=== PATIENT | male | born 1980 | race Caucasian/White ===

== ENCOUNTER → 2019-07-05 10:09 | Outpatient (CLI) | payer BC, SELFPAY ==
--- NOTE | ~2019-07-05 | XR_ITS ---
EXAMINATION: XR lumbar spine 2-3V DATE: 07/05/2019 10:22 INDICATION: Low back pain TECHNIQUE: Anteroposterior and lateral views of the lumbar spine, and cone-down lateral view of the l umbosacral junction were obtained. COMPARISON: None. FINDINGS: There is no fracture, dislocation, or subluxation. The vertebral body heights, alignment, a nd intervertebral disc spaces are normal. The paravertebral soft tissues are unremarkable. IMPRESSION: 1. Unremarkable lumbar spine radiographs. Reviewed, dictated and finalized at location A. ATOR OPERATOR
== END ==
PROVIDERS: PCP Physician Assistant Medical; Visit Provider Physician Assistant Medical
DX: M54.42 Lumbago with sciatica, left side (principal)
CPT/HCPCS: 72100

== ENCOUNTER 2022-04-16 18:48 | Emergency (ER) | payer OTHER, SELFPAY ==
[2022-04-16 19:13] VITALS: BP 124/79; PULSE 72; RESP 18; TEMP 36.8; O2SAT 100
--- NOTE | 2022-04-16 19:30 | ED.ABDPAIN ---
HPI - Abdominal Pain General Stated Complaint: abdominal pain Time Seen by Provider: 04/16/22 19:30 Source: patient, RN notes reviewed and old records reviewed Mode of arrival: ambulatory Limitations: no limitations History of Present Illness HPI narrative: 41-year-old male presents to the [facility] with complaints of abdominal pain. Patient reports epigastric, right upper quadrant, left upper quadrant pain started on Monday had had nausea, bloating and vomiting. Did not eat or drink anything until last night when he ate some pizza and shortly thereafter the pain returned. patient denies any past medical or surgical history Related Data Home Medications Medication Instructions Recorded Confirmed No Home Medications 04/16/22 04/16/22 Allergies Allergy/AdvReac Type Severity Reaction Status Date / Time No Known Allergies Allergy Verified 12/15/20 10:50 Review of Systems Review of Systems: All systems reviewed & are unremarkable except as noted in HPI and below Constitutional: Constitutional: Reports no additional constitutional complaints Eyes: Eyes: Reports no additional eye complaints ENT: Reports system reviewed and no additional complaints, except as documented Cardiovascular: Cardiovascular: Reports no additional cardiovascular complaints, Denies chest pain and Denies dyspnea Respiratory: Respiratory: Reports no additional respiratory complaints, Denies chest congestion, Denies cough and Denies dyspnea Gastrointestinal: Gastrointestinal: Reports as per HPI, Reports abdominal pain, Reports bloating, Reports nausea and Denies vomiting Musculoskeletal: Musculoskeletal: Reports no additional musculoskeletal complaints Integumentary/Breasts: Skin/Breast: Reports system reviewed and no additional complaints, except as docu Neurologic: Reports system reviewed and no additional complaints, except as documented Psychiatric: Psychiatric: Reports no additional psychiatric complaints Allergic/Immunologic: Allergic/Immunologic: Reports no additional allergic/immunologic complaints ON LICENSE OF [facility] Past Medical History Medical History (Updated 04/16/22 @ 19:43 by Aniya Milligan APRN) Patient denies medical problems Surgical History Surgical History (Updated 04/16/22 @ 19:39 by Aniya Milligan APRN) No pertinent past surgical history Family History Family History Mother Hypertension Grandparent Family history of malignant neoplasm of breast Social History Social History Smoking status: Never smoker Comments At the time of my signature, I reviewed and agree with the nursing past medical, surgical, social, and family history. There is no relevant family history pertinent to the patient complaint. Exam Const: General: cooperative, healthy appearing, comfortable, no acute distress, well developed, alert, average body habitus and well nourished Nutritional Appearance: average body habitus and well nourished Orientation/consciousness: patient oriented x3 Limitations: no limitations HENMT: Head: normal to inspection Ears: hearing grossly normal bilaterally and external ears normal Face/Nose/Sinus: Normal external nose present, Normal nares present, Normal nasal mucous membranes and turbinates present and normal facial exam Face and sinus: normal facial exam Mouth: Yes Normal oral and palatal mucosa present, Yes lip normal and Yes moist mucous membranes Throat: posterior oropharynx normal and uvula midline Eyes: General: appearance normal, both eyes and all related structures Alignment and Position: alignment normal Periorbital: periorbital findings normal Conjunctivae: conjunctivae normal Pupils: Equal, round and reactive pupils present EOM: EOMs intact bilaterally Neck: Neck: normal visual inspection, full ROM, no lymphadenopathy and no meningeal signs Chest: Chest palpation & inspectio
== END 2022-04-16 19:44 | disposition short-term general hospital (02) ==
PROVIDERS: Emergency Provider Nurse Practitioner
DX: R10.31 Right lower quadrant pain (principal); R10.13 Epigastric pain
CPT/HCPCS: 99212; G0463

== ENCOUNTER 2022-04-16 19:50 | Inpatient (IN) | payer OTHER, SELFPAY ==
--- NOTE | ~2022-04-16 | XR_ITS ---
EXAMINATION: XR sm bowel follow through DATE: 04/18/2022 12:11 INDICATION: Small bowel obstruction. TECHNIQUE: Oral contrast was administered, and a time course of radiographs of the abdomen was obtain ed. Fluoroscopy of the small bowel was performed. Fluoroscopy exposure time was 0.2 minutes. The tota l number of images was 12. COMPARISON: CT abdomen and pelvis 04/17/2022 FINDINGS: There are multiple dilated loops of small bowel. No transition point is identified. Transit time from the stomach to proximal colon was approximately 2 hours. IMPRESSION: 1. Dilated small bowel with normal transit time of contrast to the colon, consistent with adynamic il eus. Reviewed, dictated and finalized at location A. [employer] IMPRESSION: 1. Dilated small bowel with normal transit time of contrast to the colon, consi stent with adynamic ileus.
--- NOTE | ~2022-04-16 | XR_ITS ---
EXAMINATION: XR abdomen obstructive series DATE: 04/18/2022 08:35 INDICATION: Small bowel obstruction. TECHNIQUE: Upright and supine views of the abdomen on 3 radiographs were obtained. COMPARISON: CT abdomen and pelvis 04/17/2022 FINDINGS: There are dilated loops of small bowel. The colon is decompressed. There is a small volume of stool in the colon. No free intraperitoneal gas. There are phleboliths in the pelvis. IMPRESSION: 1. Persistently dilated small bowel, consistent with small bowel obstruction. Reviewed, dictated and finalized at location A. ALS RN
--- NOTE | ~2022-04-16 | CT_ITS ---
EXAMINATION: CT abdomen pelvis w con DATE: 04/17/2022 01:59 INDICATION: Right upper quadrant and epigastric abdominal pain. Nausea and vomiting. TECHNIQUE: Computed tomography (CT) of the abdomen and pelvis was performed with 100 mL Omnipaque 350 intravenous contrast. Automated exposure control and iterative reconstruction technique were employe d. The dose-length product was 228.58 mGy-cm. COMPARISON: None. FINDINGS: The visualized portions of the lung bases are clear without pneumonia or pleural effusion. The heart size is normal. No pericardial effusion. The liver, gallbladder, spleen, pancreas, adrenal glands, and kidneys are normal. The appendix is normal. There are multiple dilated loops of small bow el. There is a transition point in right abdomen. The colon is normal in caliber. There are no pathol ogically enlarged lymph nodes. There is trace pelvic ascites. There are chronic bilateral L5 pars def ects. No spondylolisthesis. IMPRESSION: 1. Small bowel obstruction with transition point in right abdomen. Reviewed, dictated and finalized at location A. TER DRIVER
--- NOTE | ~2022-04-16 | XR_ITS ---
EXAMINATION: XR abdomen obstructive series DATE: 04/19/2022 05:52 INDICATION: Adynamic ileus. TECHNIQUE: Upright and supine views of the abdomen on 3 radiographs were obtained. COMPARISON: Abdomen radiographs 04/18/2022, small bowel series 04/18/2022 FINDINGS: There is dilated small bowel with interval improvement. There is contrast in the colon, whi ch is decompressed. No free peritoneal gas. IMPRESSION: 1. Dilated small bowel with interval improvement, consistent with adynamic ileus. Reviewed, dictated and finalized at location A. TRUCK [employer]K RECEIVER IMPRESSION: 1. Dilated small bowel with interval improvement, consistent with adynamic ileu s.
--- NOTE | ~2022-04-16 | XR_ITS ---
EXAMINATION: XR abdomen obstructive series DATE: 04/17/2022 07:50 INDICATION: Abdominal pain. Small bowel obstruction. TECHNIQUE: Upright and supine views of the abdomen were obtained. COMPARISON: CT abdomen and pelvis 04/17/2022 FINDINGS: There are multiple dilated loops of small bowel. The colon is decompressed. No free intrape ritoneal gas. IMPRESSION: 1. Persistent small bowel obstruction. Reviewed, dictated and finalized at location A. STOCK MACHINE LOADER
[2022-04-16 19:54] VITALS: BP 127/68; PULSE 71; RESP 16; TEMP 36.7; O2SAT 99
[2022-04-16 20:05] LABS: Basophils Absolute Auto 0.1 K/mm3 (0.0-0.1); Basophils Percent Auto 0.8 % (0.2-1.2); Eosinophils Absolute Auto 0.1 K/mm3 (0-0.3); Hematocrit 44.4 % (42.0-52.0); Hemoglobin 15.4 g/dL (14.0-18.0); Immature Granulocyte Absolute 0.01 K/mm3 (0.00-0.031); Immature Granulocyte Percent A 0.2 % (0-0.5); Lymphocytes Absolute Auto 1.77 K/mm3 (0.9-3.2); Lymphocytes Percent Auto 26.7 % (18.3-44.2); Mean Corpuscular HGB Conc 34.7 g/dl (32-36); Mean Corpuscular Hemoglobin 31.2 pg (26-34); Mean Corpuscular Volume 90.1 fl (80-100); Mean Platelet Volume 8.8 fl (7.4-10.4); Monocytes Absolute Auto 0.9 K/mm3 (0.1-0.6); Monocytes Percent Auto 13.7 % (2.6-8.5); Neutrophils Absolute Auto 3.8 K/mm3 (1.3-6.7); Neutrophils Percent Auto 56.6 % (45.5-73.1); Platelet Count Result 288 k/mm3 (150-375); Red Blood Count 4.93 M/mm3 (4.6-6.20); Red Cell Distribution Width 11.8 % (11.5-14.5); White Blood Count 6.6 K/mm3 (4.5-10.0)
[2022-04-16 20:16] LABS: Alanine Aminotransferase 25 U/L (6-50); Albumin Level 4.8 g/dL (3.5-5.1); Alkaline Phosphatase 72 U/L (38-126); Anion Gap 8 mmol/L (8-16); Aspartate Amino Transferase 29 U/L (17-59); Bilirubin,Total 0.9 mg/dL (0.2-1.3); Blood Urea Nitrogen 15 mg/dL (9-20); Calcium 9.2 mg/dL (8.4-10.2); Carbon Dioxide 32 mmol/L (22-30); Chloride 98 mmol/L (98-107); Estimated CRCL calculation 93 ml/min; Estimated Glomerular Filt Rate > 60; Glucose 115 mg/dL (65-110); Lipase 58 U/L (23-300); Potassium 3.9 mmol/L (3.4-5.0); Sodium 138 mmol/L (137-145)
[2022-04-16 21:16] LABS: Appearance Urine Clear (Clear); Bilirubin Urine 1+ (Negative); Blood Urine Negative (Negative); Color Urine Yellow (Yellow); Glucose Urine UA Negative (Negative); Ketones Urine 1+ mg/dL (Negative); Leukocyte Esterase Ur Negative LEU/UL (Negative); Nitrate Urine Negative (Negative); Protein Urine 1+ mg/dL (Negative); Specific Grav Ur >= 1.030 (1.001-1.035)
[2022-04-16 21:18] LABS: Add Urine Microscopic? YES; Mucus Urine Moderate /lpf; Squamous Epithelial Cell Urine Rare /hpf (Few); WBC Urine 0-3 /hpf
[2022-04-16 21:52] VITALS: BP 121/70; PULSE 64; RESP 18; O2SAT 100
[2022-04-17 00:15] VITALS: BP 125/79; PULSE 63; RESP 20; O2SAT 100
--- NOTE | 2022-04-17 00:50 | ED.ABDPAIN ---
HPI - Abdominal Pain General Chief Complaint: Abdominal Pain Stated Complaint: abd pain Time Seen by Provider: 04/17/22 00:44 History of Present Illness HPI narrative: Patient is a 41-year-old male sent here from urgent care for evaluation of epigastric/right upper quadrant abdominal discomfort for the past 4 days. Patient states that his pain is severe in nature, coming in waves. He states that his pain worsened after eating a slice of pizza 2 nights ago. He does report 1 episode of vomiting nonbloody/nonbilious emesis, and several episodes of nonbloody diarrhea. Last episode of diarrhea was yesterday. He denies any fevers, chills, abdominal surgeries. At time my evaluation patient is pain-free and declines pain meds. Related Data Home Medications Medication Instructions Recorded Confirmed No Home Medications 04/16/22 04/17/22 Allergies Allergy/AdvReac Type Severity Reaction Status Date / Time No Known Allergies Allergy Verified 04/17/22 05:16 Review of Systems Review of Systems: Gen: Denies fevers or chills Eyes: Denies eye pain or visual change ENT: Denies congestion Respiratory: Denies shortness of breath or cough CV: Denies chest pain or palpitations GI: Reports abdominal pain, nausea, diarrhea denies burning, urgency, frequency or hematuria Musculoskeletal: Denies back pain or muscle pain Neuro: Denies numbness, tingling, weakness or focal weakness Skin: Denies rash Except as documented, all other systems reviewed and negative PMFSH Past Medical History Medical History Patient denies medical problems Surgical History Surgical History No pertinent past surgical history Family History Family History Mother Hypertension Grandparent Family history of malignant neoplasm of breast Social History Social History Smoking packs per day: 0.5 Smoking cigarettes per day: 10.0 Smoking status: Former smoker Tobacco type: cigarettes Smoking end date: 04/23/14 Alcohol intake: current Drinks per week: 3 Substance use: never Lack of Transportation: No Lack of Food: Never True Current Housing: I Have Housing Concerned About Future Housing: No Difficulty Paying Gas/Electric Bills: No Difficulty Paying for Meds: No Currently Unemployed: No Education: High School Diploma/GED Difficulty w/ Childcare or Family Care: No Spiritual care concerns: No Exam Narrative: APPEARANCE: Well appearing, no pain in distress, well-nourished. Head: Normocephalic and atraumatic. EYES: PERRLA/EOMI, conjunctivae clear NOSE: No nasal drainage EARS: External ear normal in appearance THROAT: Oropharynx is clear. Mucous membranes are moist. NECK: Supple. No adenopathy, no masses. RESPIRATORY: Airway patent, respirations nonlabored. Clear to auscultation bilaterally, no rales, rhonchi, wheezing. CARDIOVASCULAR: Regular rate and rhythm without murmurs, rubs, or gallops. ABDOMINAL: Tender to palpation in the epigastric/right upper quadrant region with deep palpation. Abdomen is firm. No rebound tenderness or guarding. MUSCULOSKELETAL: Extremities are warm and well-perfused. Moves all extremities well. No edema. NEURO: Normal speech. No focal neurologic deficits. SKIN: Skin is warm and dry. No rashes. PSYCHIATRIC: Normal affect/mood.. Course Vital Signs Vital signs: Vital Signs Temperature 98.0 F 04/16/22 19:54 Pulse Rate 71 04/16/22 19:54 Respiratory Rate 16 04/16/22 19:54 Blood Pressure 127/68 04/16/22 19:54 Pulse Oximetry 99 04/16/22 19:54 Oxygen Delivery Room Air 04/16/22 19:54 Temperature 97.3 F L 04/17/22 14:00 Pulse Rate 73 04/17/22 14:00 Respiratory Rate 16 04/17/22 14:00 Blood Pressure 118/67 04/17/22 14:00 Pulse Oximet
[2022-04-17] MEDS: SODIUM CHLORIDE 0.9% IV 1,000 ML 999 ML IV CONT (02:17)
[2022-04-17 03:00] LABS: Lactic Acid Reflex 0.7 mmol/L (0.7-2.0)
[2022-04-17] MEDS: MORPHINE SULFATE (*CRX) 4 MG/ML INJ IV PUSH (03:20)
[2022-04-17] MEDS: SODIUM CHLORIDE 0.9% IV 1,000 ML 150 ML IV CONT (03:22)
[2022-04-17] MEDS: ONDANSETRON INJ 4 MG/2 ML VIAL IV PUSH ×2 (03:26→13:38)
[2022-04-17 03:35] VITALS: BP 125/63; PULSE 64; RESP 20; O2SAT 99
[2022-04-17 04:05] LABS: Influenza A QL RT-PCR Negative (Negative); Influenza B QL RT-PCR Negative (Negative); SARS-CoV-2 RNA PCR Negative
--- NOTE | 2022-04-17 05:13 | PC.NURSE ---
Patient admitted on 3 Med-Surg 05:05 on 04/17/2022
[2022-04-17 05:18] VITALS: BMI 22.3
[2022-04-17 06:00] VITALS: BP 119/48; PULSE 62; RESP 16; TEMP 36.3; O2SAT 100
[2022-04-17 07:54] LABS: Basophils Absolute Auto 0.1 K/mm3 (0.0-0.1); Eosinophils Absolute Auto 0.1 K/mm3 (0-0.3); Hematocrit 39.7 % (42.0-52.0); Hemoglobin 13.5 g/dL (14.0-18.0); Immature Granulocyte Absolute 0.02 K/mm3 (0.00-0.031); Immature Granulocyte Percent A 0.3 % (0-0.5); Lymphocytes Absolute Auto 1.87 K/mm3 (0.9-3.2); Lymphocytes Percent Auto 31.2 % (18.3-44.2); Mean Corpuscular Hemoglobin 31.3 pg (26-34); Mean Corpuscular Volume 91.9 fl (80-100); Monocytes Absolute Auto 0.9 K/mm3 (0.1-0.6); Monocytes Percent Auto 14.2 % (2.6-8.5); Neutrophils Absolute Auto 3.1 K/mm3 (1.3-6.7); Neutrophils Percent Auto 51.3 % (45.5-73.1); Platelet Count Result 250 k/mm3 (150-375); Red Blood Count 4.32 M/mm3 (4.6-6.20); Red Cell Distribution Width 11.7 % (11.5-14.5)
[2022-04-17 08:08] LABS: Alanine Aminotransferase 24 U/L (6-50); Albumin Level 3.7 g/dL (3.5-5.1); Alkaline Phosphatase 55 U/L (38-126); Anion Gap 3 mmol/L (8-16); Aspartate Amino Transferase 31 U/L (17-59); Bilirubin,Total 0.6 mg/dL (0.2-1.3); Blood Urea Nitrogen 11 mg/dL (9-20); Carbon Dioxide 28 mmol/L (22-30); Chloride 103 mmol/L (98-107); Estimated CRCL calculation 111 ml/min; Estimated Glomerular Filt Rate > 60; Glucose 88 mg/dL (65-110); Sodium 134 mmol/L (137-145)
--- NOTE | 2022-04-17 08:41 | PM.IMHP ---
H&P: HPI History of Present Illness Date/Time: 04/17/22 08:41 Chief Complaint: mid abdominal pain Narrative: The patient is a 41-year-old white male who was sent to the [place] ED from an urgent care for evaluation of epigastric/right upper quadrant abdominal discomfort for the past 4 days.? Patient states that his pain is severe in nature, coming in waves. Did have most the day on Monday when it did cause him significant pain but he has had intermittent loose stools through these for 5 days also.? He states that his pain worsened after eating a slice of pizza 2 nights ago.? He does report 1 episode of vomiting on Monday or and it was nonbloody/nonbilious emesis, and several episodes of nonbloody diarrhea.? Last episode of diarrhea was on 04/16 was only a small amount.? He denies any previous similar episodes, chills, abdominal surgeries.? he did have a low-grade fever of 100 F on Monday of last week. At time my evaluation patient is pain-free and declines pain meds. Apparently was also fairly pain free when lying on the cart in the emergency room through the middle of the night. He states the pain is intermittent and crampy in nature. Review of Systems Review of Systems: All systems reviewed & are unremarkable except as noted in HPI and below (HPI) Constitutional: Constitutional: Reports as per HPI, Denies chills and Denies fever(s) Eyes: Eyes: Reports no additional eye complaints ENT: Reports Normal hearing present and Denies dizziness Cardiovascular: Cardiovascular: Reports no additional cardiovascular complaints, Denies chest pain and Denies irregular heart rhythm Respiratory: Respiratory: Reports no additional respiratory complaints Gastrointestinal: Gastrointestinal: Reports abdominal pain ( on and off for 5 days.), Denies bloating, Reports change in bowel habits ( several loose stools over the last 3 days), Reports GI cramping and Reports vomiting ( last vomited once on or this week) Comments: also significant loss of appetite only keeping water down but was not dehydrated upon presentation her labs. Genitourinary: Genitourinary: Denies hematuria Musculoskeletal: Musculoskeletal: Denies back pain Integumentary/Breasts: Skin/Breast: Reports system reviewed and no additional complaints, except as docu Neurologic: Reports Normal hearing present, Denies Abnormal speech present, Denies confusion and Denies dizziness Psychiatric: Psychiatric: Reports no additional psychiatric complaints and Denies confusion Endocrine: Endocrine: Reports no additional endocrine complaints Hematologic/Lymphatic: Hematologic/Lymphatic: Denies easy bleeding and Denies easy bruising Allergic/Immunologic: Allergic/Immunologic: Reports no additional allergic/immunologic complaints PMF Past Medical History Medical History Patient denies medical problems Surgical History Surgical History No pertinent past surgical history Family History Family History Mother Hypertension Grandparent Family history of malignant neoplasm of breast Social History Social History Smoking packs per day: 0.5 Smoking cigarettes per day: 10.0 Smoking status: Former smoker Tobacco type: cigarettes Smoking end date: 04/23/14 Alcohol intake: current Drinks per week: 3 Substance use: never Lack of Transportation: No Lack of Food: Never True Current Housing: I Have Housing Concerned About Future Housing: No Difficulty Paying Gas/Electric Bills: No Difficulty Paying for Meds: No Currently Unemployed: No Education: High School Diploma/GED Difficulty w/ Childcare or Family Care: No Spiritual care concerns: No Meds Home Medications and Allergies Home Medications M
[2022-04-17] MEDS: PANTOPRAZOLE SODIUM IV 40 MG VIAL IV PUSH ×2 (10:03→20:25)
[2022-04-17 14:00] VITALS: BP 118/67; PULSE 73; RESP 16; TEMP 36.3; O2SAT 99
[2022-04-17 17:12] LABS: Strep Group A RT-PCR NOT DETECTED (Negative)
[2022-04-17 17:16] LABS: Monoscreen Negative (Negative); Negative Monotest Control Negative (Negative); Positive Monotest Control Positive (Positive)
[2022-04-17] MEDS: SODIUM CHLORIDE 0.9% IV 1,000 ML 125 ML IV CONT (18:01)
[2022-04-17 22:00] VITALS: BP 120/58; PULSE 56; RESP 18; TEMP 36.6; O2SAT 99
[2022-04-18] MEDS: SODIUM CHLORIDE 0.9% IV 1,000 ML 125 ML IV CONT ×2 (02:40→13:23)
[2022-04-18 06:00] VITALS: BP 111/65; PULSE 64; RESP 18; TEMP 36.6; O2SAT 99
[2022-04-18 06:59] LABS: Lactic Acid Reflex 0.7 mmol/L (0.7-2.0)
[2022-04-18 07:01] LABS: Basophils Absolute Auto 0.1 K/mm3 (0.0-0.1); Basophils Percent Auto 1.6 % (0.2-1.2); Eosinophils Absolute Auto 0.3 K/mm3 (0-0.3); Eosinophils Percent Auto 5.2 % (0-4.4); Hematocrit 39.9 % (42.0-52.0); Hemoglobin 13.5 g/dL (14.0-18.0); Immature Granulocyte Absolute 0.01 K/mm3 (0.00-0.031); Immature Granulocyte Percent A 0.2 % (0-0.5); Lymphocytes Absolute Auto 1.81 K/mm3 (0.9-3.2); Lymphocytes Percent Auto 36.1 % (18.3-44.2); Mean Corpuscular HGB Conc 33.8 g/dl (32-36); Mean Corpuscular Hemoglobin 30.7 pg (26-34); Mean Corpuscular Volume 90.7 fl (80-100); Mean Platelet Volume 9.1 fl (7.4-10.4); Monocytes Absolute Auto 0.6 K/mm3 (0.1-0.6); Monocytes Percent Auto 11.2 % (2.6-8.5); Neutrophils Absolute Auto 2.3 K/mm3 (1.3-6.7); Neutrophils Percent Auto 45.7 % (45.5-73.1); Platelet Count Result 242 k/mm3 (150-375); Red Cell Distribution Width 11.2 % (11.5-14.5)
[2022-04-18 07:07] LABS: Alanine Aminotransferase 35 U/L (6-50); Albumin Level 3.7 g/dL (3.5-5.1); Alkaline Phosphatase 58 U/L (38-126); Anion Gap 8 mmol/L (8-16); Aspartate Amino Transferase 29 U/L (17-59); Blood Urea Nitrogen 12 mg/dL (9-20); Calcium 7.9 mg/dL (8.4-10.2); Carbon Dioxide 24 mmol/L (22-30); Chloride 105 mmol/L (98-107); Estimated CRCL calculation 111 ml/min; Estimated Glomerular Filt Rate > 60; Glucose 68 mg/dL (65-110); Magnesium 1.9 mg/dL (1.6-2.3); Potassium 4.1 mmol/L (3.4-5.0); Sodium 137 mmol/L (137-145)
[2022-04-18] MEDS: PANTOPRAZOLE SODIUM IV 40 MG VIAL IV PUSH ×2 (08:18→20:50)
--- NOTE | 2022-04-18 08:59 | PM.PNGS ---
Progress Note: A&P Assessment and Plan (1) Small intestine obstruction: Code(s): K56.609 - Unspecified intestinal obstruction, unspecified as to partial versus complete obstruction Status: Acute Assessment and Plan: No vomiting or nausea overnight. However patient NPO. All labs look good with no elevated white count and lactic acid normal. (2) Abdominal pain: Code(s): R10.9 - Unspecified abdominal pain Status: Acute Assessment and Plan: He seems improved with his NPO status. However, will await results of his morning x-ray. Labs look good with normal white count. Yesterday afternoon strep screen and Monospot test were negative. Previously tested in the ER for flu and COVID which were negative. Subjective Subjective Date/Time Seen: 04/18/22 07:59 Patient reports: feels better, flatus ( However, it was fairly minimal) and no bowel movement Interval history: The patient is having mild discomfort between 1 to 3/10 across the mid abdomen umbilical level. About to take some IV Tylenol for this. No bowel movement overnight. Did get up and walk in the hallways without increased pain. Review of Systems Review of Systems: All systems reviewed & are unremarkable except as noted in HPI and below Constitutional: Constitutional: Reports as per HPI, Denies chills and Denies fever(s) Cardiovascular: Cardiovascular: Denies chest pain and Denies dyspnea Respiratory: Respiratory: Reports no additional respiratory complaints and Denies dyspnea Gastrointestinal: Gastrointestinal: Reports as per HPI, Denies bloating, Denies GI cramping ( No cramping overnight), Denies early satiety, Denies nausea and Denies vomiting Musculoskeletal: Musculoskeletal: Reports no additional musculoskeletal complaints Neurologic: Denies memory loss Psychiatric: Psychiatric: Denies anxiety and Denies memory loss Exam Const: General: cooperative, comfortable, alert and awake Orientation/consciousness: patient oriented x3 HENMT: Head: normal to inspection Mouth: Yes moist mucous membranes Eyes: Sclera: sclerae normal Pupils: Equal, round and reactive pupils present Neck: Neck: normal visual inspection and no JVD Chest: Chest palpation & inspection: normal inspection of the chest Resp: Effort & Inspection: normal respiratory effort Auscultation: clear to auscultation bilaterally Cardio: Jugular venous distension: no JVD Rate: regular rate GI: Inspection: normal to inspection, scaphoid and no scars GI Palp: Yes Soft to palpation, No Hepatosplenomegaly present and No Hernia present Auscultation: normal bowel sounds Rectal Exam: deferred Neuro: General: patient oriented x3 Cranial nerves: Yes Equal, round and reactive pupils present Objective Data Vital Signs Vital Signs: Vital Signs - 24 hr 04/17/22 14:00 04/17/22 22:00 04/18/22 06:00 Temperature 36.3 C L 36.6 C 36.6 C Pulse Rate 73 56 L 64 Respiratory Rate 16 18 18 Blood Pressure 118/67 120/58 L 111/65 Pulse Oximetry 99 99 99 Intake/Output Intake/Output: Intake & Output 04/15/22 04/16/22 04/17/22 04/18/22 23:59 23:59 23:59 23:59 Intake Total 1320 1000 Output Total 800 Balance 1320 200 Meds/Results Medications: Active Medications Generic Name Dose Route Start Last Admin Trade Name Freq PRN Reason Stop Dose Admin Sodium Chloride 1,000 mls @ 125 mls/hr 04/17/22 16:50 04/18/22 02:40 Normal Saline Iv IV CONT 125 mls/hr .Q8H CHRIS Administration Morphine Sulfate 4 mg 04/17/22 03:24 Morphine Sulfate (*Crx) 4 Mg/Ml Inj IV PUSH Q4H PRN Pain Rated 7-10 Morphine Sulfate 2 mg 04/17/22 08:55 Morphine Sulfate (*Crx) 2 Mg/Ml Inj IV PUSH Q4H PRN Pain Rated 4-6 Ondansetron HCl 4 mg 04/17/22 03:24 04/17/22 13:38 Ondansetron Inj 4 Mg/2 Ml Vial IV PUSH 4 mg Q4H PRN Administration Nausea Pantoprazole Sodium 40 mg 04/17/22 09:00 04/18/22 08:18 Pantoprazole Sodiu
[2022-04-18 09:23] VITALS: BMI 22.3
[2022-04-18] MEDS: ONDANSETRON INJ 4 MG/2 ML VIAL IV PUSH (13:27)
[2022-04-18 14:00] VITALS: BP 126/72; PULSE 62; RESP 18; TEMP 36.5; O2SAT 100
[2022-04-18] MEDS: ACETAMINOPHEN 500 MG TABLET 1000 MG PO (17:08)
[2022-04-18 22:00] VITALS: BP 130/73; PULSE 55; RESP 20; TEMP 36.5; O2SAT 100
[2022-04-19] MEDS: SODIUM CHLORIDE 0.9% IV 1,000 ML 75 ML IV CONT (00:50)
[2022-04-19 06:00] VITALS: BP 116/67; PULSE 53; RESP 20; TEMP 36.5; O2SAT 100
[2022-04-19 07:00] LABS: Anion Gap 3 mmol/L (8-16); Blood Urea Nitrogen 8 mg/dL (9-20); Carbon Dioxide 28 mmol/L (22-30); Chloride 103 mmol/L (98-107); Estimated CRCL calculation 111 ml/min; Estimated Glomerular Filt Rate > 60; Glucose 81 mg/dL (65-110); Potassium 3.9 mmol/L (3.4-5.0); Sodium 134 mmol/L (137-145)
[2022-04-19] MEDS: PANTOPRAZOLE SODIUM IV 40 MG VIAL IV PUSH (09:40)
[2022-04-19 13:41] VITALS: BP 112/69; PULSE 60; RESP 18; TEMP 36.2; O2SAT 100
--- NOTE | 2022-04-19 14:52 | PM.DS ---
DS: Admitting Diagnosis Discharge Date 04/19/2022 Admitting Diagnosis Small-bowel obstruction, partial versus complete DS: Discharge Diagnosis Discharge Diagnosis (1) Small intestine obstruction: Code(s): K56.609 - Unspecified intestinal obstruction, unspecified as to partial versus complete obstruction Status: Acute Assessment and Plan: This was the main reason for his admission. Please see the CT scan done in the ER on his evaluation. He had had about 2-3 days of fairly severe cramping abdominal pain periodically with 1 day of fairly good relief in between. He never required NG decompression but improve just with NPO status. CT and follow-up x-rays showed signs of probable I dynamically ileus and this was proven by a small-bowel follow-through. Thorough discussion was undertaken with him that further workup is needed and that it was recommended that he see a GI physician for this. The suggestion of possible inflammation such as gastroenteritis could as the cause for the ileus would probably be the most possible or probable. Secondarily inflammatory bowel disease or some type of a small bowel tumor would be less likely but possible. Therefore, consultation as an outpatient for further workup is recommended especially if the symptoms return. Patient did not require surgery therefore no planned follow-up with me. (2) Abdominal pain: Code(s): R10.9 - Unspecified abdominal pain Status: Acute (3) Family hx of colon cancer: Code(s): Z80.0 - Family history of malignant neoplasm of digestive organs Status: Acute Assessment and Plan: In view of his family history of colon cancer in his paternal grandmother and grandfather. Grandfather possibly had diagnosis of colon cancer at age 50 and of complications and tests of same at 57. Grandmother probably had colon cancer much later in life and in her 60s. DS: Summary Hospital Course Reason for hospitalization: Abdominal pain and signs of bowel small-bowel obstruction on imaging. Hospital Course: This was the main reason for his admission. Please see the CT scan done in the ER on his evaluation. He had had about 2-3 days of fairly severe cramping abdominal pain periodically with 1 day of fairly good relief in between. He never required NG decompression but improve just with NPO status. CT and follow-up x-rays showed signs of probable I dynamically ileus and this was proven by a small-bowel follow-through. Thorough discussion was undertaken with him that further workup is needed and that it was recommended that he see a GI physician for this. The suggestion of possible inflammation such as gastroenteritis could as the cause for the ileus would probably be the most possible or probable. Secondarily inflammatory bowel disease or some type of a small bowel tumor would be less likely but possible. Therefore, consultation as an outpatient for further workup is recommended especially if the symptoms return. Patient did not require surgery therefore no planned follow-up with me. Time Spent with Patient Time attestation: Total time spent providing and/or coordinating discharge services: Time spent: Greater than 30 minutes Specific discharge activities: Instructions to consider further workup in view of his family history of colon cancer in his paternal grandmother and grandfather. Grandfather possibly had diagnosis of colon cancer at age 50 and of complications and tests of same at 57. Grandmother probably had colon cancer much later in life and in her 60s. DS: Data Data Completed and Pending Labs on day of discharge: Labs from last 24 hours 04/19/22 06:10 Sodium 134 L Potassium 3.9 Chloride 103 Carbon Dioxide 28 Anion Gap 3 L BUN 8 L Creatinine 0.80 Estim Creat Clear Calc 111 Estimated GFR > 60 Glucose 81 Calcium 8.0 L Discharge Plan Discharge Attending physician on dis
== END 2022-04-19 17:00 | disposition home or self-care (01) | DRG 390 ==
LOC: ANHED 04-17 03:59 → ANH3MEDSUR 04-17 04:51
PROVIDERS: Emergency Medicine; Physician Assistant; Admitting Provider Surgery; Visit Provider Surgery
DX: K56.609 Unspecified intestinal obstruction, unspecified as to partial versus complete obstruction (principal); Z20.822 Contact with and (suspected) exposure to COVID-19; Z80.0 Family history of malignant neoplasm of digestive organs; Z87.891 Personal history of nicotine dependence
CPT/HCPCS: 36415; 74019; 74177; 74250; 80048; 80053; 81001; 83605; 83690; 83735; 85025; 86308; 87636; 87651; 96361; 96374; 96375; 99285; A9270; C9113; G0378; J0131; J2270; J2405; J7030; Q9967

== ENCOUNTER 2022-06-10 01:56 | Day surgery (SDC) | payer OTHER, SELFPAY ==
[2022-05-26 12:12] VITALS: BMI 22.3
--- NOTE | 2022-06-09 15:03 | WPDANESEPPF ---
Anes - Initial Pre Proc Eval Procedure: Operation Date: 06/10/22 08:30 Proposed Procedures p Colonoscopy - Dat Puente MD Date/Time: 06/09/22 15:04 Surgeon: Dat Puente MD Pre Op Diagnosis: small bowel obstruction Patient Data Age: 41 Gender: M Height: 1.8 m Weight: 72.7 kg Allergies Allergy/AdvReac Type Severity Reaction Status Date / Time No Known Allergies Allergy Verified 06/10/22 07:08 Home Medications Medication Instructions Recorded Confirmed Type No Home Medications 04/16/22 06/10/22 History Patient hx anesthesia problems: none Family hx anesthesia problems: none Results Review: All pre-operative results and documents have been reviewed as part of the pre-operative evaluation. [facility] Past Medical History Medical History Family hx of colon cancer Surgical History Surgical History No pertinent past surgical history Family History Family History Mother Hypertension Grandparent Family history of malignant neoplasm of breast Social History Social History Smoking packs per day: 0.5 Smoking cigarettes per day: 10.0 Smoking status: Never smoker Tobacco type: cigarettes Smoking end date: 04/23/14 Alcohol intake: current Drinks per week: 1 Substance use: never Substance use type: does not use Lack of Transportation: No Lack of Food: Never True Current Housing: I Have Housing Concerned About Future Housing: No Difficulty Paying Gas/Electric Bills: No Difficulty Paying for Meds: No Currently Unemployed: No Education: High School Diploma/GED Difficulty w/ Childcare or Family Care: No Living arrangements: with family Spiritual care concerns: No Anes - Eval Final PreProcedure Day of Procedure 06/09/22 15:04 Patient weight: normal Heart: regular rate and rhythm Lungs: clear to auscultation and normal air movement Airway: Mallampati scale class II Neurological: alert and oriented Last oral intake: >/= 8 hours ASA classification: II Emergent: no Anesthetic plan: proceed Anesthesia type and monitoring: general GIVS and standard monitoring Results Review: All pre-operative results and documents have been reviewed as part of the pre-operative evaluation. Informed Consent: The patient's anesthetic plan and its attendant risks and benefits were discussed with the patient/family/POA. Questions were solicited and answers provided to the satisfaction of the patient/family/POA.
[2022-06-10 07:09] VITALS: BP 100/65; PULSE 71; RESP 20; TEMP 36.2; O2SAT 99
[2022-06-10] MEDS: LACTATED RINGERS 1,000 ML 150 ML IV CONT (07:16)
--- NOTE | 2022-06-10 08:06 | WPDHPUPDATE1 ---
History and Physical Update Update Date/Time: 06/10/22 08:06 History and Physical has been reviewed, including an updated exam of the patient. There are NO changes in the patient's condition. Risks, benefits, and alternatives have been discussed and questions answered. Patient agrees to proceed with procedure.
[2022-06-10 08:35] VITALS: BP 92/67; PULSE 73; RESP 17; O2SAT 99
[2022-06-10 08:45] VITALS: BP 94/67; PULSE 62; RESP 11; O2SAT 99
[2022-06-10 08:55] VITALS: BP 104/67; PULSE 60; RESP 14; O2SAT 100
== END 2022-06-10 09:08 | disposition home or self-care (01) ==
PROVIDERS: PCP Family Medicine; Visit Provider Internal Medicine Gastroenterology
PROC: 0DJD8ZZ Inspection of Lower Intestinal Tract, Via Natural or Artificial Opening Endoscopic (ICD-10-PCS; CPT 45378; principal; 2022-06-10 08:30)
DX: Z12.11 Encounter for screening for malignant neoplasm of colon (principal); K63.5 Polyp of colon; Z80.0 Family history of malignant neoplasm of digestive organs
CPT/HCPCS: 45385; 88305; J2704; J7120

== ENCOUNTER 2022-07-19 08:27 | Outpatient (CLI) | payer OTHER, SELFPAY ==
[2022-07-19 19:26] LABS: Basophils Absolute Auto 0.1 K/mm3 (0.0-0.1); Basophils Percent Auto 1.1 % (0.2-1.2); Eosinophils Absolute Auto 0.2 K/mm3 (0-0.3); Eosinophils Percent Auto 4.1 % (0-4.4); Hematocrit 44.3 % (42.0-52.0); Hemoglobin 14.9 g/dL (14.0-18.0); Lymphocytes Percent Auto 35.4 % (18.3-44.2); Mean Corpuscular HGB Conc 33.6 g/dl (32-36); Mean Corpuscular Hemoglobin 31.5 pg (26-34); Mean Corpuscular Volume 93.7 fl (80-100); Mean Platelet Volume 9.3 fl (7.4-10.4); Monocytes Absolute Auto 0.6 K/mm3 (0.1-0.6); Monocytes Percent Auto 11.6 % (2.6-8.5); Neutrophils Absolute Auto 2.6 K/mm3 (1.3-6.7); Neutrophils Percent Auto 47.8 % (45.5-73.1); Platelet Count Result 271 k/mm3 (150-375); Red Blood Count 4.73 M/mm3 (4.6-6.20); Red Cell Distribution Width 12.4 % (11.5-14.5); White Blood Count 5.4 K/mm3 (4.5-10.0)
[2022-07-19 19:41] LABS: LDL Cholesterol Direct 72 mg/dL
[2022-07-19 19:59] LABS: Alanine Aminotransferase 22 U/L (6-50); Albumin Level 4.5 g/dL (3.5-5.1); Alkaline Phosphatase 71 U/L (38-126); Anion Gap 6 mmol/L (8-16); Aspartate Amino Transferase 55 U/L (17-59); Bilirubin,Total 0.9 mg/dL (0.2-1.3); Blood Urea Nitrogen 16 mg/dL (9-20); Calcium 9.1 mg/dL (8.4-10.2); Carbon Dioxide 30 mmol/L (22-30); Chloride 103 mmol/L (98-107); Cholesterol 164 mg/dL (0-200); Estimated Glomerular Filt Rate > 60; Glucose 81 mg/dL (65-110); HDL Direct 61 mg/dL; Sodium 139 mmol/L (137-145); Triglycerides 41 mg/dL (<150)
== END 2022-07-19 08:28 | disposition home or self-care (01) ==
LOC: ANHGOSHLAB 08:28
PROVIDERS: PCP Family Medicine; Visit Provider Family Medicine
DX: Z00.00 Encounter for general adult medical examination without abnormal findings (principal); E55.9 Vitamin D deficiency, unspecified; K56.609 Unspecified intestinal obstruction, unspecified as to partial versus complete obstruction; E53.8 Deficiency of other specified B group vitamins; Z13.220 Encounter for screening for lipoid disorders; K56.0 Paralytic ileus
CPT/HCPCS: 36415; 80053; 80061; 82306; 82607; 84443; 85025

== ENCOUNTER 2023-04-27 11:48 | Emergency (ER) | payer BC, SELFPAY ==
--- NOTE | ~2023-04-27 | XR_ITS ---
EXAMINATION: XR abdomen/kub 1V INDICATION: Constipation TECHNIQUE: Supine views of the abdomen were obtained on 2 radiographs. COMPARISON: 04/19/2022 FINDINGS: There is a normal volume of colonic stool. No dilated loops of bowel are evident. There are phleboliths of the pelvis. IMPRESSION: 1. No radiographic correlate for the patient's symptoms. Reviewed, dictated and finalized at location [facility]
[2023-04-27 11:59] VITALS: BP 110/70; PULSE 65; RESP 16; TEMP 36.6; O2SAT 100
[2023-04-27] MEDS: DICYCLOMINE HCL INJ 20 MG/2 ML VIAL IM (14:23)
[2023-04-27] MEDS: KETOROLAC 30 MG/ML VIAL (*BKC) IV PUSH (14:23)
[2023-04-27 14:34] LABS: Alanine Aminotransferase 19 U/L (6-50); Albumin Level 4.3 g/dL (3.5-5.1); Alkaline Phosphatase 76 U/L (38-126); Anion Gap 6 mmol/L (8-16); Aspartate Amino Transferase 29 U/L (17-59); Basophils Percent Auto 0.5 % (0.2-1.2); Blood Urea Nitrogen 14 mg/dL (9-20); Calcium 9.4 mg/dL (8.4-10.2); Carbon Dioxide 27 mmol/L (22-30); Chloride 104 mmol/L (98-107); Eosinophils Absolute Auto 0.1 K/mm3 (0-0.3); Estimated CRCL calculation 110 ml/min; Estimated Glomerular Filt Rate > 60; Glucose 91 mg/dL (65-110); Hematocrit 42.8 % (42.0-52.0); Hemoglobin 14.6 g/dL (14.0-18.0); Immature Granulocyte Absolute 0.01 K/mm3 (0.00-0.031); Immature Granulocyte Percent A 0.1 % (0-0.5); Lipase 66 U/L (23-300); Lymphocytes Absolute Auto 2.28 K/mm3 (0.9-3.2); Lymphocytes Percent Auto 28.2 % (18.3-44.2); Mean Corpuscular HGB Conc 34.1 g/dl (32-36); Mean Corpuscular Hemoglobin 30.5 pg (26-34); Mean Corpuscular Volume 89.5 fl (80-100); Mean Platelet Volume 9.1 fl (7.4-10.4); Monocytes Absolute Auto 0.7 K/mm3 (0.1-0.6); Monocytes Percent Auto 9.2 % (2.6-8.5); Neutrophils Absolute Auto 4.9 K/mm3 (1.3-6.7); Platelet Count Result 270 k/mm3 (150-375); Potassium 4.1 mmol/L (3.4-5.0); Red Blood Count 4.78 M/mm3 (4.6-6.20); Red Cell Distribution Width 11.7 % (11.5-14.5); Sodium 137 mmol/L (137-145); White Blood Count 8.1 K/mm3 (4.5-10.0)
[2023-04-27 14:50] LABS: Appearance Urine Clear (Clear); Bilirubin Urine Negative (Negative); Blood Urine Negative (Negative); Color Urine Yellow (Yellow); Glucose Urine UA Negative (Negative); Ketones Urine 2+ mg/dL (Negative); Leukocyte Esterase Ur Negative LEU/UL (Negative); Nitrate Urine Negative (Negative); Protein Urine Negative (Negative); Specific Grav Ur 1.025 (1.001-1.035); Urobilinogen Urine 0.2 mg/dL (<2.0); pH Urine 5.5 (5.0-9.0)
[2023-04-27 14:51] LABS: Add Urine Microscopic? NO
--- NOTE | 2023-04-27 16:28 | ED.ABDPAIN ---
HPI - Abdominal Pain General Chief Complaint: Abdominal Pain Stated Complaint: abdominal pain Time Seen by Provider: 04/27/23 12:53 History of Present Illness HPI narrative: Patient is a 42-year-old male who presents ER with abdominal pain. Aching over last week. Associated with firm small stools. No vomiting. Has history of ileus/small-bowel obstruction from a year ago and is concerned it may be recurring. No abdominal distension. Poor oral intake according patient. Related Data Allergies Allergy/AdvReac Type Severity Reaction Status Date / Time No Known Allergies Allergy Verified 06/22/22 15:44 Review of Systems Review of Systems: All systems reviewed & are unremarkable except as noted in HPI and below Constitutional: Constitutional: Reports no additional constitutional complaints ENT: Reports system reviewed and no additional complaints, except as documented Cardiovascular: Cardiovascular: Reports no additional cardiovascular complaints Respiratory: Respiratory: Reports no additional respiratory complaints Gastrointestinal: Gastrointestinal: Reports abdominal pain, Denies constipation, Denies diarrhea, Denies nausea and Denies vomiting Genitourinary: Genitourinary: Reports no additional male genitourinary complaints Musculoskeletal: Musculoskeletal: Reports no additional musculoskeletal complaints [facility] Past Medical History Medical History Adynamic ileus (~04/2022) Family hx of colon cancer History of colon polyps (~06/2022) Small intestine obstruction (~04/2022) resolved with conservative management Surgical History Surgical History No pertinent past surgical history Family History Family History Mother Hypertension Grandparent Family history of malignant neoplasm of breast Social History Social History Smoking packs per day: 0.5 Smoking cigarettes per day: 10.0 Smoking status: Never smoker Tobacco type: cigarettes Smoking end date: 04/23/14 Alcohol intake: current Drinks per week: 1 Substance use: never Substance use type: does not use Lack of Transportation: No Lack of Food: Never True Current Housing: I Have Housing Concerned About Future Housing: No Difficulty Paying Gas/Electric Bills: No Difficulty Paying for Meds: No Currently Unemployed: No Education: High School Diploma/GED Difficulty w/ Childcare or Family Care: No Living arrangements: with family Spiritual care concerns: No Exam Narrative: GENERAL: Well-appearing, well-nourished, and in no acute distress. HEAD: Normocephalic, atraumatic. ENT: Mucous membranes moist. CHEST: Clear to auscultation. No respiratory distress. HEART: Regular rate and rhythm. Normal peripheral pulses. ABDOMEN: Soft, nontender, nondistended, normal active bowel sounds. EXTREMITIES: Normal range of motion. No edema. SKIN: Warm, dry, no rash. NEURO: Alert and oriented x3. PSYCH: Normal mood and affect. Course Course Emergency Course: Feel patient is struggling from constipation. Will prescribe MiraLax. Improved with Bentyl and Toradol. Vital Signs Vital signs: Vital Signs Temperature 97.9 F 04/27/23 11:59 Pulse Rate 65 04/27/23 11:59 Respiratory Rate 16 04/27/23 11:59 Blood Pressure 110/70 04/27/23 11:59 Pulse Oximetry 100 04/27/23 11:59 Oxygen Delivery Room Air 04/27/23 11:59 Temperature 97.9 F 04/27/23 11:59 Pulse Rate 63 04/27/23 17:14 Respiratory Rate 16 04/27/23 17:14 Blood Pressure 105/69 04/27/23 17:14 Pulse Oximetry 100 04/27/23 17:14 Oxygen Delivery Room Air 04/27/23 11:59 MDM - Abdominal Pain Lab Data 04/27/23 14:15 04/27/23 14:15 Labs: Lab Results 04/27/23 04/27/23 Rang
[2023-04-27 17:14] VITALS: BP 105/69; PULSE 63; RESP 16; O2SAT 100
== END 2023-04-27 17:15 | disposition home or self-care (01) ==
PROVIDERS: Emergency Provider Emergency Medicine; PCP Family Medicine
DX: K59.00 Constipation, unspecified (principal); Z86.010 Personal history of colon polyps; Z87.891 Personal history of nicotine dependence
CPT/HCPCS: 36415; 74018; 80053; 81003; 83690; 85025; 96372; 96374; 99284; J0500; J1885